=== PATIENT | male | born 1950 | race African-American/Black ===

== ENCOUNTER → 2019-06-01 | Day surgery (SDC) | payer MEDICARE ==
[2019-05-28 15:28] LABS: BASOPHILS % 0.5 % (0.0-1.0); EOSINOPHILS # (AUTO) 0.1 (0.0-0.4); EOSINOPHILS % 2.3 % (0.0-6.0); HEMATOCRIT 39.2 % (38.2-49.6); LYMPHOCYTES % 24.5 % (18.0-39.1); MEAN CORPUSCULAR HGB CONC 33.2 g/dL (31-35); MEAN CORPUSCULAR VOLUME 87.5 fL (81-99); MONOCYTES # (AUTO) 0.4 (0.2-0.8); MONOCYTES % 8.8 % (4.4-11.3); NEUTROPHILS # (AUTO) 2.5 (2.1-6.9); NEUTROPHILS % 63.6 % (38.7-80.0); PLATELET COUNT 167 x10e3/uL (140-360); RED BLOOD COUNT 4.48 x10e6/uL (4.3-5.7); RED CELL DISTRIBUTION WIDTH 13.2 % (11.7-14.4)
[2019-05-28 15:44] LABS: ALANINE AMINOTRANSFERASE 16 IU/L (0-55); ALBUMIN/GLOBULIN RATIO 1.5 (0.8-2.0); ALKALINE PHOSPHATASE 48 IU/L (40-150); ANION GAP 10.2 mmol/L (8-16); BLOOD UREA NITROGEN 10 mg/dL (7-26); BUN/CREATININE RATIO 8 (6-25); CALCIUM 9.4 mg/dL (8.4-10.2); CARBON DIOXIDE 28 mmol/L (22-29); CHLORIDE 106 mmol/L (98-107); CREATININE, SERUM 1.26 mg/dL (0.72-1.25); EST GLOMERULAR FILTRATION RATE > 60 ML/MIN (60-); GLUCOSE 84 mg/dL (74-118); POTASSIUM 4.2 mmol/L (3.5-5.1); SODIUM 140 mmol/L (136-145)
--- NOTE | 2019-05-31 16:25 | NUR ---
Attempted to contact patient, no answer and unable to leave message. Will attempt to contact patient at another time.
[2019-06-01] VITALS (11 sets, daily range): BP systolic 121–160; BP diastolic 73–87
[~2019-06-01] VITALS: Ht 185.4 cm; Wt 71.7 kg
[~2019-06-01] MED LIST: ASPIRIN81 MG PO; ATORVASTATIN CA20 MG PO; CARVEDILOL3.125 MG PO; CLOPIDOGREL75 MG PO; FENTANYL CITRATE/PF 100MCG/2 ML INJ ONE; HEPARIN SOD/SOD CHLORIDE 2,000 ML ONE; IOPAMIDOL 370 MG/ML 200 ML INFUS..BTL INJ ONE; LIDOCAINE HCL 2% LOCAL 20 ML VIAL ONE; LISINOPRIL10 MG PO; MIDAZOLAM HCL 2 MG/2 ML VIAL ONE; SODIUM CHLORIDE 0.9% 1000ML 1,000 ML ONE; VERAPAMIL HCL 2.5 MG/ML 2 ML VIAL ONE
--- NOTE | 2019-06-01 12:29 | Operative Report ---
DATE OF PROCEDURE: 06/01/2019 SURGEON: Rex Martin MD INDICATIONS: Coronary artery disease, congestive heart failure, unstable angina, and acute systolic heart failure. PROCEDURES PERFORMED: 1. Left heart catheterization, selective coronary angiography. 2. Deployment of right wrist TR band. 3. Conscious sedation administration, recovery, hemodynamic and neurological monitoring by RN and supervision by MD for 35 minutes. COMPLICATIONS: None. RECOMMENDATIONS: Aggressive medical therapy including AICD placement. DESCRIPTION OF PROCEDURE: Access obtained in the right radial artery. A 5-[place] sheath was placed. Coronary angiography demonstrated mild coronary artery disease, 10% to 20% luminal stenosis. No critical occlusions were noted. No intervention deemed necessary. Right wrist TR band applied. The patient discharged home same day. Rex Martni MD [facility] /[id number]
--- NOTE | 2019-06-01 14:55 | NUR ---
IV to left hand removed and dressing placed per unit protocol. Right wrist dressing is clean,dry, and intact at this time. 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 Patient discharged with belongings. No distress noted at time of discharge.
== END | disposition home or self-care (01) ==
LOC: CATH LAB 11:37
PROVIDERS: ATTEND Internal Medicine Interventional Cardiology
DX: I25.110 Atherosclerotic heart disease of native coronary artery with unstable angina pectoris (principal); I51.9 Heart disease, unspecified; Z01.812 Encounter for preprocedural laboratory examination; Z79.02 Long term (current) use of antithrombotics/antiplatelets; Z79.82 Long term (current) use of aspirin; Z86.73 Personal history of transient ischemic attack (TIA), and cerebral infarction without residual deficits
CPT/HCPCS: 36415; 80053; 85025; 93454; C1769; C1887; J2001; J2250; J3010; J7030; Q9967; 99152